=== PATIENT | female | born 1945 | race Caucasian/White ===

== ENCOUNTER → 2018-04-20 12:47 | Outpatient (CLI) | payer MEDICARE, OTHER, SELFPAY ==
--- NOTE | 2018-04-20 | DI.RAD.S_ITS ---
PROCEDURE: XR KUB INDICATIONS: ABDOMINAL PAIN TECHNIQUE: One view of the abdomen acquired. COMPARISON: None. FINDINGS: Surgical changes and devices: Bilateral hip arthroplasties. Right lower quadrant surgical clips. Bowel: Bowel gas pattern is normal. Soft tissues: No suspicious abdominal calcifications. Visualized solid organ contours appear normal in size. Bones: No suspicious bony lesions. IMPRESSION: No source for abdominal pain identified. Dictated by: Bernabe Tejeda [facility] Interpreted: Natalia Shaw MD on 04/20/2018 at 13:24 Approved by: Natalia Shaw MD, PhD on 04/20/2018 at 14:30
== END ==
PROVIDERS: Visit Provider Specialist
DX: R10.9 Unspecified abdominal pain (principal); M54.5 Low back pain; E03.9 Hypothyroidism, unspecified
CPT/HCPCS: 74018